=== PATIENT | female | born 1980 | race Caucasian/White ===

== ENCOUNTER 2018-04-16 09:09 | Emergency (ER) | payer OTHER ==
[2018-04-16 10:04] VITALS: BP 139/66
--- NOTE | 2018-04-16 10:46 | UC ---
Lower Extremity/Ankle HPI - HPI Summary HPI Summary: Pt c/o sudden onset ankle pain and swelling after "twisting" it while playing soccer last night. Pt has been applying ice and taking ibuprofen, pain with weight bearing. - History of Current Complaint Chief Complaint: UCTrauma Stated Complaint: LEFT ANKLE INJURY Time Seen by Provider: 04/16/18 10:03 Hx Obtained From: Patient Hx Last Menstrual Period: 03/29/18 ?: No Onset/Duration: Sudden Onset, Lasting Hours Severity Initially: Moderate Severity Currently: Moderate Pain Intensity: 5 Aggravating Factor(s): Standing, Ambulation Alleviating Factor(s): Rest, Elevation Able to Bear Weight: Yes - minimal - Risk Factors Gout Risk Factors: Negative DVT Risk Factors: Negative Septic Arthritis Risk Factor: Negative - Allergies/Home Medications Allergies/Adverse Reactions: Allergies Allergy/AdvReac Type Severity Reaction Status Date / Time No Known Allergies Allergy Verified 04/16/18 10:04 Home Medications: Home Medications Ibuprofen TAB* [Advil TAB*] 200 mg PO Q6H PRN 04/16/18 [History Confirmed ] PMH/Surg Hx/FS Hx/Imm Hx Previously Healthy: Yes - Surgical History Surgical History: None - Family History Known Family History: Positive: Cardiac Disease - Social History Occupation: Employed Full-time Lives: With Family Alcohol Use: Weekly Substance Use Type: None Smoking Status (MU): Never Smoked Tobacco Have You Smoked in the Last Year: No Review of Systems Constitutional: Negative Skin: Negative Eyes: Negative ENT: Negative Respiratory: Negative Cardiovascular: Negative Gastrointestinal: Negative Genitourinary: Negative Motor: Decreased ROM - left ankle Neurovascular: Negative Musculoskeletal: Arthralgia - left ankle, Decreased ROM - left ankle, Edema - left lateral malleolus, Myalgia Neurological: Negative Psychological: Negative Is Patient Immunocompromised?: No All Other Systems Reviewed And Are Negative: Yes Physical Exam Triage Information Reviewed: Yes Appearance: Well-Appearing Vital Signs: Initial Vital Signs Temp 97.9 F 04/16/18 09:59 Pulse 86 04/16/18 09:59 Resp 18 04/16/18 09:59 BP 139/66 04/16/18 09:59 Pulse Ox 100 04/16/18 09:59 Vital Signs Reviewed: Yes Eye Exam: Normal ENT Exam: Normal Dental Exam: Normal Neck exam: Normal Respiratory: Positive: No respiratory distress Musculoskeletal: Positive: ROM Limited @ - left ankle, Edema @ - left lateral malleolus Neurological Exam: Normal Psychological Exam: Normal Skin Exam: Normal Diagnostics - Radiology No standard instances Radiology Interpretation Completed By: Radiologist - IMPRESSION: THERE IS A MILD AMOUNT OF SWELLING OVERLYING THE FIBULAR MALLEOLUS WELL A FAINT BONY DENSITY ADJACENT TO THE DISTAL TIP OF THE TIBIAL MALLEOLUS WHICH COULD REPRESENT AN AVULSION FRACTURE IN THE CORRECT CLINICAL SETTING. Lower Extremity Course/Dx - Course Course Of Treatment: I discussed the radiologist report regarding ankle xray. Pt is aware of possibility of fracture. - Differential Dx/Diagnosis Differential Diagnosis/HQI/PQRI: Fracture (Closed), Sprain Provider Diagnoses: left ankle sprain. possible avuslion fracture- Discharge - Sign-Out/Discharge Documenting (check all that apply): Patient Departure All imaging exams completed and their final reports reviewed: Yes - Discharge Plan Condition: Stable Disposition: HOME Patient Education Materials: Ankle Sprain (ED), R.I.C.E. Treatment (ED) Referrals: Jose Jenkins MD [Medical Doctor] - As Soon As Possible Tobin Abreu MD [Primary Care Provider] - If Needed - Billing Disposition and Condition Condition: STABLE Disposition: Home
--- NOTE | 2018-04-16 11:07 | RAD ---
INDICATION: Lateral ankle pain after soccer injury the previous night COMPARISON: None. TECHNIQUE: 3 views of the left ankle were obtained. FINDINGS: There is a mild degree of swelling overlying the fibular malleolus. At the distal tip of the tibial malleolus is a small linear bony fragment which could represent an avulsion fracture in the correct clinical setting. Otherwise the well corticated bones exhibit normal alignment. Joint spaces appear maintained. Enthesophyte is noted at the origin the plantar fascia. IMPRESSION: THERE IS A MILD AMOUNT OF SWELLING OVERLYING THE FIBULAR MALLEOLUS WELL A FAINT BONY DENSITY ADJACENT TO THE DISTAL TIP OF THE TIBIAL MALLEOLUS WHICH COULD REPRESENT AN AVULSION FRACTURE IN THE CORRECT CLINICAL SETTING. If the patient's symptoms persist, follow-up imaging is recommended.
== END 2018-04-16 11:18 | disposition home or self-care (01) ==
LOC: UCCORT 09:09
DX: S93.402A Sprain of unspecified ligament of left ankle, initial encounter (principal); X58.XXXA Exposure to other specified factors, initial encounter; Y93.66 Activity, soccer; Y92.39 Other specified sports and athletic area as the place of occurrence of the external cause; Y99.8 Other external cause status
CPT/HCPCS: 99212; G0463